=== PATIENT | male | born 1955 | race Caucasian/White ===

== ENCOUNTER → 2016-12-25 | Outpatient (CLI) | payer MEDICARE ==
[~2016-12-25] MED LIST: BUPR-168 PO; CARB200T76 BC; CLOP75TA; CLOP75TA PO; CRB200T; CRB200T PO; DILT120C8; DILT120C8 PO; FISH OIL; GARLIC; LOVA20TA2; LOVA40TA2 PO; LSNP10T; LSNP20T PO; MULT-608; MULT-608 PO
--- NOTE | 2016-12-25 12:18 | Diagnostic Imaging Report ---
PROCEDURE: CT head without contrast. TECHNIQUE: Multiple contiguous axial images were obtained through the brain without the use of intravenous contrast. INDICATION: Seizure disorder. FINDINGS: There is generalized cortical atrophy. There is no intracranial hemorrhage. No mass effect. No extra-axial fluid collections. There is no mass effect. Mild atherosclerotic changes are noted within the carotid siphon. The ventricles are not dilated. There is no shift of midline. There are bilateral periventricular white matter changes probably secondary to old small lacunar infarcts. IMPRESSION: 1. Cortical atrophy. 2. White matter changes along the periventricular region in the centrum semiovale likely representing old lacunar infarct. 3. No acute changes or masses demonstrated. Dictated by: Dictated on workstation # [id number]
== END ==
LOC: RAD 11:27
PROVIDERS: ATTEND Internal Medicine
DX: G31.9 Degenerative disease of nervous system, unspecified (principal); G40.909 Epilepsy, unspecified, not intractable, without status epilepticus
CPT/HCPCS: 70450

== ENCOUNTER → 2017-04-19 | Outpatient (CLI) | payer MEDICARE | LOC: CARD 09:42 | PROVIDERS: ATTEND Internal Medicine Cardiovascular Disease | DX: I77.810 Thoracic aortic ectasia (principal); I10 Essential (primary) hypertension; R07.9 Chest pain, unspecified; R78.5 Finding of other psychotropic drug in blood; M54.5 Low back pain; I47.1 Supraventricular tachycardia | CPT/HCPCS: 93306 ==

== ENCOUNTER → 2017-11-03 | Outpatient (CLI) | payer MEDICARE ==
--- NOTE | 2017-11-03 12:20 | Diagnostic Imaging Report ---
INDICATION: Fever. COMPARISON: 09/26/2011 FINDINGS: 2 views of the chest are obtained. Heart size is normal. The pulmonary vessels appear unremarkable. There is no pneumothorax, mediastinal widening or pleural fluid. There is a pacer device in the left chest. Leads appear intact. The lungs are clear. There are mild degenerative changes in the spine. IMPRESSION: No acute abnormality is demonstrated. Dictated by: Dictated on workstation # [id number]
== END ==
LOC: RAD 10:44
PROVIDERS: ATTEND Internal Medicine
DX: R50.9 Fever, unspecified (principal)
CPT/HCPCS: 71046

== ENCOUNTER → 2017-11-09 | Outpatient (CLI) | payer MEDICARE ==
--- NOTE | 2017-11-09 13:51 | Diagnostic Imaging Report ---
INDICATION: Right upper quadrant pain. TECHNIQUE: Abdominal sonography performed in the routine fashion. FINDINGS: The liver shows normal echogenicity with no focal lesions apparent. Gallbladder is difficult to visualize but shows no definite stones or significant wall thickening. Common duct is not well seen due to overlying gas. Pancreas is obscured by overlying gas. The spleen is unremarkable. The aorta shows mild ectasia distally measuring 3 cm. IVC could not be visualized. The right kidney measures 9.9 cm in length and appears normal. The left kidney measures 10.1 cm in length and appears normal. There is no ascites. IMPRESSION: Limited study as above. No definite gallstones or wall thickening. Common duct could not be visualized nor could the pancreas. Mild ectasia of the abdominal aorta is noted. Consider CT if clinically warranted. Dictated by: Dictated on workstation # [id number]
== END ==
LOC: RAD 11:32
PROVIDERS: ATTEND Internal Medicine
DX: I77.811 Abdominal aortic ectasia (principal); R50.9 Fever, unspecified
CPT/HCPCS: 76700

== ENCOUNTER → 2017-11-10 | Outpatient (CLI) | payer MEDICARE ==
[~2017-11-10] MED LIST changes: +CATHETER FLUSH 10 ML SYR IV PRN
--- NOTE | 2017-11-10 09:58 | Diagnostic Imaging Report ---
Indication: Abdominal pain After intravenous administration of 5.4 mCi technetium 99m Choletec, scintigraphic images of the upper abdomen are obtained. Initial images reveal normal distribution of activity throughout the liver. There is prompt appearance of activity in the biliary tree and gallbladder. Activity passes freely into the small bowel. Oral Ensure was administered with gallbladder ejection fraction calculated to be 96%. Normal values are 50% or greater. Impression: Normal hepatobiliary scan without evidence of cholecystitis or biliary obstruction. Dictated by: Dictated on workstation # [id number]
== END ==
LOC: CARD 07:19
PROVIDERS: ATTEND Internal Medicine
DX: R10.11 Right upper quadrant pain (principal)
CPT/HCPCS: 78227

== ENCOUNTER → 2018-09-08 | Outpatient (CLI) | payer MEDICARE ==
[~2018-09-08] MED LIST changes: -CATHETER FLUSH 10 ML SYR IV PRN
--- NOTE | 2018-09-08 15:05 | Diagnostic Imaging Report ---
PROCEDURE: CT lumbar spine without contrast. TECHNIQUE: Multiple contiguous axial images were obtained through the lumbar spine without the use of intravenous contrast. Sagittal and coronal reformations were then performed. Auto Exposure Controls were utilized during the CT exam to meet ALARA standards for radiation dose reduction. INDICATION: Low back pain increasing in severity. COMPARISON: No prior studies are available for comparison. FINDINGS: Curvature of the lumbar spine is normal. There is minimal retrolisthesis of L5 on S1. Vertebral body heights are maintained. No acute compression fracture is seen. There is multilevel degenerative disc disease with variable disc space narrowing and marginal spurring. There appears to be significant central canal stenosis due to ligamentous thickening, facet changes and broad-based disc/osteophyte complex at the L4-5 level. This is noted to a lesser degree at the L3-4 level. There appears to be bilateral neural foraminal stenosis at L4-5 as well as the L5-S1 levels. The paraspinous tissues demonstrate some mild aneurysmal dilatation of the lower abdominal aorta measuring 3.3 cm in transverse diameter. AP dimension cannot be measured as this was not entirely included on the study. IMPRESSION: 1. Lumbar spondylosis with lower level central canal and neural foraminal stenosis. No acute bony abnormality is detected. 2. Lower abdominal aortic aneurysm. Dictated by: Dictated on workstation # [id number]
== END ==
LOC: RAD 14:15
PROVIDERS: ATTEND Internal Medicine
DX: M47.816 Spondylosis without myelopathy or radiculopathy, lumbar region (principal); M48.061 Spinal stenosis, lumbar region without neurogenic claudication; I71.4 Abdominal aortic aneurysm, without rupture
CPT/HCPCS: 72131

== ENCOUNTER → 2018-09-20 | Outpatient (CLI) | payer MEDICARE ==
--- NOTE | 2018-09-20 12:37 | Diagnostic Imaging Report ---
INDICATION: Abdominal aortic aneurysm screening. TECHNIQUE: Grayscale sonographic images of the abdominal aorta. CORRELATION STUDY: None. FINDINGS: Overall assessment is limited given the overlying bowel gas. There appears to be dilatation throughout the visualized portion of the abdominal aorta. Diffuse atherosclerotic plaque formation. Abdominal Aorta Proximal: Not visualized, obscured by bowel gas. Mid: 3.7 x 3.2 cm Distal: 3.5 x 3.2 cm Common Iliac Arteries Right VENTURA: 2.3 x 1.2 cm Left VENTURA: 2.0 x 1.2 cm IMPRESSION: 1. Limited visualization of abdominal aorta. There appears to be diffuse dilatation of the visualized portion of the abdominal aorta. Maximum measured dimension at 3.7 cm. Dilatation of the bilateral common iliac arteries up to 2.3 cm. Dictated by: Dictated on workstation # [id number]
== END ==
LOC: RAD 07:09
PROVIDERS: ATTEND Internal Medicine
DX: Z13.6 Encounter for screening for cardiovascular disorders (principal); I71.4 Abdominal aortic aneurysm, without rupture; I72.3 Aneurysm of iliac artery
CPT/HCPCS: 76775

== ENCOUNTER → 2020-01-08 | Outpatient (CLI) | payer MEDICARE | LOC: CARD 11:00 | PROVIDERS: ATTEND Internal Medicine Cardiovascular Disease | DX: I08.2 Rheumatic disorders of both aortic and tricuspid valves (principal); I48.91 Unspecified atrial fibrillation; E78.2 Mixed hyperlipidemia; I47.1 Supraventricular tachycardia; G40.909 Epilepsy, unspecified, not intractable, without status epilepticus; I11.9 Hypertensive heart disease without heart failure | CPT/HCPCS: 93306 ==

== ENCOUNTER → 2020-01-10 | Outpatient (CLI) | payer MEDICARE ==
[~2020-01-10] MED LIST changes: +CATHETER FLUSH 10 ML SYR IV PRN; +REGADENOSON 0.4 MG/5 ML SYR (LEXISCAN) IV ONE
[2020-01-10 09:23] VITALS: BP 129/66
--- NOTE | 2020-01-10 13:45 | Cardiology Stress Test Report ---
Stress Test Report Date of Procedure/Referring: Date of Procedure: Jan 10, 2020 PCP Taisha Cheung MD Admitting Physician Rene Fu DO Indications: Atrial fibrillation Baseline Heart Rate: 59 Baseline Blood Pressure: Blood Pressure Systolic: 129 Blood Pressure Diastolic: 66 Baseline Vitals Vital Signs Date Time Temp Pulse Resp B/P (MAP) Pulse Ox O2 Delivery O2 Flow Rate FiO2 01/10/20 09:23 59 129/66 (87) 99 Baseline EKG: Baseline EKG: Normal sinus rhythm with left bundle branch block Summary After explaining the procedure to the patient, he signed a consent and then brought to the stress nuclear laboratory. Patient received 0.4 mg Lexiscan for stress test, ECG, heart rate and blood pressure were monitored continuously. Resting and stress dose of radio tracer were injected, imaging was acquired and reviewed in short axis, horizontal long axis and vertical long axis views. TID: 1.07 SSS: 25 SDS: 5 EF: 45 1. Patient tolerated Lexiscan well 2. Left bundle branch block persisted throughout test 3. Decreased uptake involving the mid to apical inferior wall and inferolateral wall which is fixed with small area of phil-infarct ischemia 4. Prominent left ventricle with diffuse hypokinesia more pronounced at the inferior wall and inferoapex, EF 45 percent TAISHA CHEUNG MD Jan 10, 2020 13:45
== END ==
LOC: CARD 07:14
PROVIDERS: ATTEND Internal Medicine Cardiovascular Disease
DX: I48.91 Unspecified atrial fibrillation (principal); I10 Essential (primary) hypertension; E78.2 Mixed hyperlipidemia; I47.1 Supraventricular tachycardia; G40.909 Epilepsy, unspecified, not intractable, without status epilepticus; I44.7 Left bundle-branch block, unspecified
CPT/HCPCS: 78452; 93017; A9502

== ENCOUNTER 2020-08-21 23:00 | Emergency (ER) | payer MEDICARE ==
[~2020-08-21] VITALS: Ht 185.5 cm; Wt 95.5 kg
[~2020-08-21 23:00] MED LIST changes: -CATHETER FLUSH 10 ML SYR IV PRN; -REGADENOSON 0.4 MG/5 ML SYR (LEXISCAN) IV ONE
[2020-08-21 23:21] LABS: BASOPHILS # (AUTO) 0.1 10^3/uL (0.0-0.1); BASOPHILS % (AUTO) 1 % (0-10); EOSINOPHILS % (AUTO) 0 % (0-10); HEMATOCRIT 35 % (40-54); HEMOGLOBIN 11.3 g/dL (13.3-17.7); LYMPHOCYTES # (AUTO) 1.1 10^3/uL (1.0-4.0); LYMPHOCYTES % (AUTO) 10 % (12-44); MEAN CORPUSCULAR HEMOGLOBIN 31 pg (25-34); MEAN CORPUSCULAR HGB CONC 32 g/dL (32-36); MEAN CORPUSCULAR VOLUME 97 fL (80-99); MONOCYTES # (AUTO) 0.6 10^3/uL (0.0-1.0); MONOCYTES % (AUTO) 6 % (0-12); NEUTROPHILS # (AUTO) 8.5 10^3/uL (1.8-7.8); NEUTROPHILS % (AUTO) 83 % (42-75); PLATELET COUNT 214 10^3/uL (130-400); WHITE BLOOD COUNT 10.3 10^3/uL (4.3-11.0)
[2020-08-21 23:40] LABS: FIBRIN DEGRADATION PRODUCTS 5.48 UG/ML (0.00-0.49); INR 1.3 (0.8-1.4); PROTHROMBIN TIME PATIENT 16.1 SEC (12.2-14.7)
[2020-08-21 23:41] LABS: ALBUMIN 3.6 GM/DL (3.2-4.5); BILIRUBIN,TOTAL 1.1 MG/DL (0.1-1.0); CALCIUM 8.9 MG/DL (8.5-10.1); CREATININE SERUM 1.89 MG/DL (0.60-1.30); POTASSIUM 4.9 MMOL/L (3.6-5.0); TOTAL PROTEIN 7.6 GM/DL (6.4-8.2)
[2020-08-22] MEDS ORDERED: NS IV 1000 ML 1,000 ML IV SCH (00:30)
--- NOTE | 2020-08-22 00:35 | ED Neurological Problem ---
General Chief Complaint: Neuro-Stroke Like Symptoms Stated Complaint: POSSIBLE STROKE Nursing Triage Note: PRESENTS [facility] CART FROM HOME WITH C/O UNWITNESSED FALL ET STROKE LIKE S/S. ARRIVES WITH SL TO L AC. C-COLLAR PLACED PER ER STAFF. EMS [facility] ARRIVED HOME THIS EVENING ET FOUND PT ON THE FLOOR, CONFUSED, FOR UNKNOWN PERIOD OF TIME. REPORTS SHE CONTACTED PT YESTERDAY EVENING ET HE WAS MENTATING AT BASELINE. PT UNABLE TO RECALL WHEN HE FELL. PT NOTED TO BE EXPERIENCING DELAYED SPEECH. WEAKNESS NOTED TO L UPPER EXTREMITY. MULTIPLE AREAS OF BRUISING ET ABRASIONS NOTED. REPORTS PT TESTED + FOR COVID-19 ON 07/13/20 ET HAS BEEN IN CLOSE CONTACT WITH PROVIDERS. AT SIDE. Nursing Sepsis Screen: No Definite Risk Source: patient, family, old records Exam Limitations: no limitations History of Present Illness Date Seen by Provider: Aug 21, 2020 Time Seen by Provider: 23:01 Initial Comments This is a 65-year-old gentleman presents to the emergency room with strokelike symptoms after being found on the floor by his when she came back into town today. She works out of town and had not heard from him since sometime yesterday. Patient does not remember when he fell or what exactly happened. He has obvious left-sided deficits with facial droop, arm weakness, and leg weakn ess. He is otherwise alert and oriented. He has bruising noted to the left face and left lower extremity. He also has some shallow lacerations and scratches on the left leg from his dog. These injuries are already scabbed over. He has a pacemaker/defibrillator and is in paced rhythm at this time. He denies chest pain. He has chronic right shoulder pain which is unchanged today. He denies pain anywhere else. He had a COVID-19 in early July and has had some difficulty with recovering from his acute infection. He is afebrile and does not have any specific Covid symptoms at this time. He had labs performed this week by his outside [employer] sales and they were "okay". He sees Dr. Hernandez. Dr. Fu is his primary care provider. Allergies and Home Medications Allergies Coded Allergies: aspirin (Unverified Allergy, Mild, 01/03/09) morphine (Unverified Allergy, Mild, 01/03/09) Home Medications Bupropion Hcl 75 Mg Tab, 75 MG PO DAILY, (Reported) Carbamazepine 200 Mg Tablet, 1 TAB PO BID, (Reported) Clopidogrel Bisulfate 75 Mg Tablet, 1 EACH PO DAILY, (Reported) Diltiazem Hcl 120 Mg Capsule.cr, 1 EACH PO DAILY, (Reported) Lisinopril 20 Mg Tab, 20 MG PO DAILY, (Reported) Lovastatin 40 Mg Tablet, 1 EACH PO DAILY WITH SUPPER, (Reported) Multivitamins 1 Tab Tablet, 1 TAB PO DAILY, (Reported) Patient Home Medication List Home Medication List Reviewed: Yes Review of Systems Review of Systems Constitutional: no symptoms reported Eyes: No Symptoms Reported Ears, Nose, Mouth, Throat: see HPI Respiratory: no symptoms reported Cardiovascular: see HPI Gastrointestinal: no symptoms reported Genitourinary: no symptoms reported Musculoskeletal: see HPI Skin: see HPI Psychiatric/Neurological: See HPI Endocrine: No Symptoms Reported Hematologic/Lymphatic: No Symptoms Reported Past Wyzkegu-Uueuym-Ikilsh Hx Past Med/Social Hx: Reviewed Nursing Past Med/Soc Hx Patient Social History Alcohol Use: Denies Use Smoking Status: Never a Smoker 2nd Hand Smoke Exposure: No Recent Infectious Disease Expo: No Recent Hopitalizations: Yes Immunizations Up To Date Date of Influenza Vaccine: Sep 27, 2011 Past Medical History Surgeries: Yes (r knee x10, r ankle, l toe amputation, back) Amputation, Appendectomy, Orthopedic, Tonsillectomy Respiratory: No Cardiac: Yes High Cholesterol, Hypertension Neurological: Yes Seizure Disorder Reproductive Disorders: No Gastrointestinal: No Musculoskeletal: Yes (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 0.0oz. [id number]; 27.00 BMI Method:Stated General Appearance: WD/WN, no apparent distress HEENT: PERRL/EOMI, other (Abrasion) Neck: non-tender, normal inspection Respiratory: lungs clear, normal breath sounds, no respiratory distress Cardiovascular: no edema, no murmur, irregularly irregular Gastrointestinal: non tender, soft; No distended Extremities: no pedal edema, other (Bruising and shallow lacerations/abrasions on the left lower extremity. Mild tenderness to palpation of the left hip. No pain with rotation of the hips.) Neurologic/Psychiatric: alert, normal mood/affect, oriented x 3, abnormal business quality assurance analyst II-XII, facial droop Crainal Nerves: PERRL, abnormal speech, facial weakness, other (Left-sided visual field deficit) Coordination/Gait: ABN nose to finger (L) Motor/Sensory: weak motor strength LUE, weak motor strength LLE Skin: warm/dry, ecchymosis Stroke NIH Stroke Scale Assessment Level of Consciousness: 0=Alert (0), Level of Consciousness-Questions: 1=Answers one question (1), LOC Commands: 0=Performs both tasks (0), Gaze: Partial Gaze Palsy (1), Visual Darby: 2=Complete hemianopia (2), Facial Movement (Facial Paresis): 1=Minor paralysis (1), Motor Function-Arms Right: 1=Drift (1), Motor Function-Arms Left: 3=No effort/gravity (3), Motor Function-Legs Right: 0=No drift (0), Motor Function-Legs Left: 3=No effort/gravity (3), Limb Ataxia: 1=Present in one limb (1), Sensory: 0=Normal:no loss (0), Best Language: 0=No aphasia (0), Dysarthria: 1=Mild to moderate loss (1), Extinction & Inattention: 1=Visual,tactile,auditory (1), T otal: 15 Progress/Results/Core Measures Results/Orders Lab Results Laboratory Tests Test 08/21/20 00:35 08/21/20 23:00 08/21/20 23:11 Range/Units Urine Color ZAKIYA H Urine Clarity SL CLOUDY Urine pH 5.5 5-9 Urine Specific [place] >=1.030 1.016-1.022 Urine Protein 2+ H NEGATIVE Urine Glucose (UA) NEGATIVE NEGATIVE Urine Ketones TRACE H NEGATIVE Urine Nitrite NEGATIVE NEGATIVE Urine Bilirubin 1+ H NEGATIVE Urine Urobilinogen 1.0 < = 1.0 MG/DL Urine Leukocyte Esterase NEGATIVE NEGATIVE Urine RBC (Auto) 2+ H NEGATIVE Urine RBC NONE /HPF Urine WBC 0-2 /HPF Urine Crystals NONE /LPF Urine Bacteria TRACE /HPF Urine Casts NONE /LPF Urine Mucus NEGATIVE /LPF Urine Culture Indicated NO White Blood Count 10.3 4.3-11.0 10^3/uL Red Blood Count 3.63 L 4.30-5.52 10^6/uL Hemoglobin 11.3 L 13.3-17.7 g/dL Hematocrit 35 L 40-54 % Mean Corpuscular Volume 97 80-99 fL Mean Corpuscular Hemoglobin 31 25-34 pg Mean Corpuscular Hemoglobin Concent 32 32-36 g/dL Red Cell Distribution Width 13.4 10.0-14.5 % Platelet Count 214 130-400 10^3/uL Mean Platelet Volume 9.0 9.0-12.2 fL Immature Granulocyte % (Auto) 0 % Neutrophils (%) (Auto) 83 H 42-75 % Lymphocytes (%) (Auto) 10 L 12-44 % Monocytes (%) (Auto) 6 0-12 % Eosinophils (%) (Auto) 0 0-10 % Basophils (%) (Auto) 1 0-10 % Neutrophils # (Auto) 8.5 H 1.8-7.8 10^3/uL Lymphocytes # (Auto) 1.1 1.0-4.0 10^3/uL Monocytes # (Auto) 0.6 0.0-1.0 10^3/uL Eosinophils # (Auto) 0.0 0.0-0.3 10^3/uL Basophils # (Auto) 0.1 0.0-0.1 10^3/uL Immature Granulocyte # (Auto) 0.0 0.0-0.1 10^3/uL Prothrombin Time 16.1 H 12.2-14.7 SEC INR Comment 1.3 0.8-1.4 Activated Partial Thromboplast Time 37 H 24-35 SEC D-Dimer 5.48 H 0.00-0.49 UG/ML Sodium Level 136 135-145 MMOL/L Potassium Level 4.9 3.6-5.0 MMOL/L Chloride Level 103 98-107 MMOL/L Carbon Dioxide Level 18 L 21-32 MMOL/L Anion Gap 15 H 5-14 MMOL/L Blood Urea Nitrogen 19 H 7-18 MG/DL Creatinine 1.89 H 0.60-1.30 MG/DL Estimat Glomerular Filtration Rate 36 BUN/Creatinine Ratio 10 Glucose Level 117 H 70-105 MG/DL Calcium Level 8.9 8.5-10.1 MG/DL Corrected Calcium 9.2 8.5-10.1 MG/DL Total Bilirubin 1.1 H 0.1-1.0 MG/DL Aspartate Amino Transf (AST/SGOT) 51 H 5-34 U/L Alanine Aminotransferase (ALT/SGPT) 43 0-55 U/L Alkaline Phosphatase 199 H 40-136 U/L Total Creatine Kinase 742 H 30-200 U/L Troponin I 0.386 *H <0.028 NG/ML Total Protein 7.6 6.4-8.2 GM/DL Albumin 3.6 3.2-4.5 GM/DL Triglycerides Level 181 H <150 MG/DL Cholesterol Level 131 < 200 MG/DL LDL Cholesterol Direct 82 1-129 MG/DL VLDL Cholesterol 36 5-40 MG/DL HDL Cholesterol 17 L 40-60 MG/DL Glucometer 108 70-110 MG/DL My Orders Orders - CHIQUIS HENSON MD Cbc With Automated Diff (08/21/20:) Protime With Inr (08/21/20:) Partial Thromboplastin Time (08/21/20:) Comprehensive Metabolic Panel (08/21/20:) Fibrin Degradation Products (08/21/20:) Troponin I (08/21/20:) Ua Culture If Indicated (08/21/20:) Chest 1 View, Ap/Pa Only (08/21/20:) Catheter(Urinary) Insert & Ass 03,15 (08/21/20:) Ekg Tracing (08/21/20:) Accucheck Stat ONCE (08/21/20:) Ed Iv/Invasive Line Start (08/21/20:) Ed Iv/Invasive Line Start (08/21/20:09) Vital Signs Stroke Patient Q15M (08/21/20:) Ct Head Wo-R/O Stroke (08/21/20:) O2 (08/21/20:) Intake & Output 06,14,22 (08/21/20:) Monitor-Rhythm Ecg Trace Only (08/21/20:) Dysphagia Screening Tool (3/17/21 23:09) Post Thrombolytic Adminstratio (08/21/20 23:09) Lipid Panel (08/22/20 06:00) Ct Cervical Spine Wo (08/21/20 23:09) Pelvis (08/21/20 ) Creatine Kinase (08/21/20 23:43) Ns Iv 1000 Ml (Sodium Chloride 0.9%) (08/22/20 00:30) Dipht,Pertuss(Acell),Tet Adult (Boostrix (08/22/20 00:45) Medications Given in ED Current Medications Medications Dose Ordered Sig/Rachel Route Start Time Stop Time Status Last Admin Dose Admin Diphtheria/ Tetanus/Acell Pertussis 0.5 ml ONCE ONCE IM 08/22/20 00:45 08/22/20 00:46 DC 08/22/20 01:16 0.5 ML Vital Signs/I&O 08/21/20 08/22/20 23:00 02:30 Temp 36.6 36.7 Pulse 114 116 Resp 20 19 B/P (MAP) 138/64 (88) 129/58 (88) Pulse Ox 95 96 O2 Delivery Room Air Room Air Blood Pressure Mean: 88 FSBG Bedside Testing Finger Stick Blood Glucose: 108 Blood Glucose Action Taken: RN NOTIFIED Progress Progress Note : Progress Note Stroke activation was paged upon arrival. He was not a TPA candidate due to length of time from last known well status. Noncontrast CT was reviewed by me and stat rad report reviewed and discussed with the radiologist. There are low- density tissue changes in the right parietal brain consistent with left-sided deficits. CT findings were discussed with Dr. Espitia, stroke neurologist at [facility]. Given patient's renal failure and advanced stroke findings on CT, she advised against CT angiogram as patient does not appear to be an endovascular therapy candidate. There was some subtle midline shift noted on the CT scan. For this reason transfer to a neurosurgical capability was determined to be most appropriate. I discussed the case with Dr. Bennett, Dr. Cope and Dr. Almanza at [facility]. Transfer was accepted. Other abnormalities identified include elevated troponin, although patient denies ever having any chest pain. His creatinine kinase was also moderately elevated. A liter of IV fluid was infused. C-collar had been applied during initial assessment but was removed after cervical spine was cleared by CT scan. Tetanus booster was administered. Initial ECG Impression Date: Aug 21, 2020 Initial ECG Impression Time: 23:06 Initial ECG Rate: 115 Comment Paced rhythm with suspected underlying atrial fibrillation. Diagnostic Imaging Diagonstic Imaging: Xray Plain Films/CT/US/NM/MRI: chest Comments Chest x-ray viewed by me. Report not yet available. No significant acute abn ormalities appreciated. Diagonstic Imaging: CT Plain Films/CT/US/NM/MRI: head Comments CT head viewed by me and stat rad report reviewed. Low-density changes in the right parietal lobe consistent with acute CVA. Subtle 4 mm midline shift. Diagonstic Imaging: Xray Plain Films/CT/US/NM/MRI: pelvis Comments Pelvis x-ray viewed by me. Report not yet available. No acute abnormalities appreciated. Diagonstic Imaging: CT Plain Films/CT/US/NM/MRI: c-spine Comments CT cervical spine viewed by me and stat rad report reviewed. No acute injuries identified. Departure Impression Primary Impression: Acute CVA (cerebrovascular accident) Additional Impressions: Left-sided weakness Elevated troponin Chronic kidney disease Qualified Codes: N18.9 - Chronic kidney disease, unspecified Visual field defect Multiple contusions Disposition: XFER SHT-TRM HOSP Condition: Stable Transfer Transfer Reason: Exceeds level of care Time Spoke to Accepting Phy: 00:35 Transfer Progress Notes Transfer accepted by Dr. Bennett in the ER with consultation from Dr. Cope (neurology) and Dr. Almanza (neurosurgery). Transfer Time: 02:24 Transfer Facility: [place], [place] Departure-Patient Inst. Referrals: MELANIE FU DO (PCP/Family) Primary Care Physician CHIQUIS HENSON MD Aug 22, 2020 00:35
[2020-08-22 00:44] LABS: CLARITY,URINE SL CLOUDY; COLOR,URINE AMBER; GLUCOSE, URINE (UA) NEGATIVE (NEGATIVE); KETONES,URINE TRACE (NEGATIVE); LEUKOCYTE ESTERASE ,URINE NEGATIVE (NEGATIVE); NITRITE,URINE NEGATIVE (NEGATIVE); PH,URINE 5.5 (5-9); PROTEIN,URINE 2+ (NEGATIVE)
[2020-08-22] MEDS ORDERED: TETANUS,DIPTH,PERTUSS P/F (BOOSTRIX) 0.5 ML VIAL IM ONE (00:45)
[2020-08-22 00:55] LABS: CHOLESTEROL 131 MG/DL (< 200); HDL CHOLESTEROL 17 MG/DL (40-60); TRIGLYCERIDES 181 MG/DL (<150); VLDL CHOLESTEROL 36 MG/DL (5-40)
[2020-08-22 00:58] LABS: BACTERIA,URINE TRACE /HPF; BILIRUBIN,URINE 1+ (NEGATIVE); WBC,URINE 0-2 /HPF
[2020-08-22 02:30] VITALS: BP 129/58
--- NOTE | 2020-08-22 06:41 | Diagnostic Imaging Report ---
INDICATION: Trauma, fall. COMPARISON: None available. FINDINGS: Single AP view of the pelvis shows no traumatic diastases in the symphysis pubis or SI joints. No hip dislocation. No acute displaced fractures appreciated. Scattered pelvic phleboliths. IMPRESSION: No features of acute traumatic injury in the pelvis by radiography. Dictated by: Dictated on workstation # [id number]
--- NOTE | 2020-08-22 06:42 | Diagnostic Imaging Report ---
CHEST 1 VIEW, AP/PA ONLY Indication: Trauma, fall. Stroke. Comparison: 11/03/2017 Findings: Stable left pectoral transvenous dual-chamber pacemaker/ICD. Visualized portions of the lungs are clear. Posterior lower lobes are poorly evaluated by portable radiography. No pneumothorax or pleural effusion. Stable borderline cardiomegaly. Impression: 1. No acute cardiopulmonary process by portable radiography. Dictated by: Dictated on workstation # [id number]
--- NOTE | 2020-08-22 06:50 | Diagnostic Imaging Report ---
PROCEDURE: CT cervical spine without contrast. TECHNIQUE: Multiple contiguous axial images were obtained through the cervical spine without the use of intravenous contrast. Sagittal and coronal reformations were then performed. Auto Exposure Controls were utilized during the CT exam to meet ALARA standards for radiation dose reduction. INDICATION: Trauma, fall. COMPARISON: None available. FINDINGS: No acute fracture or traumatic malalignment in the cervical spine. Visualized portions of the upper ribs are intact. Clavicular heads are also intact. Airway is widely patent. No retropharyngeal fluid collection. Lung apices are clear. No cervical lymphadenopathy. IMPRESSION: 1. No acute fracture or malalignment in the cervical spine. 2. Findings are in agreement with the preliminary report. Dictated by: Dictated on workstation # [id number]
--- NOTE | 2020-08-22 06:55 | Diagnostic Imaging Report ---
PROCEDURE: CT head wo r/o stroke. TECHNIQUE: Multiple contiguous axial images were obtained through the brain without the use of intravenous contrast. Auto Exposure Controls were utilized during the CT exam to meet ALARA standards for radiation dose reduction. INDICATION: Trauma, fall. COMPARISON: None available. FINDINGS: There is a large region of rinaldi white loss in the right parietal lobe indicative of acute-subacute infarct. Adjacent to the infarct, there is a hyperdense vessel sign within the posterior aspect of the sylvian fissure, indicative of thrombus. No hemorrhagic conversion is present. No midline shift or hydrocephalus. Chronic infarct in the left occipital lobe and right cerebellar hemisphere. Basilar cisterns remain patent. No skull fracture. Paranasal sinuses and mastoid air cells are clear. IMPRESSION: 1. Acute-subacute infarct in the right parietal lobe with hyperdense thrombus in a branch of the right MCA at the level of posterior sylvian fissure. 2. No hemorrhagic conversion. 3. Old infarcts in the left occipital lobe and right inferior cerebellar hemisphere. 4. Findings are in agreement with the preliminary report. Dictated by: Dictated on workstation # [id number]
== END 2020-08-22 02:30 | disposition short-term general hospital (02) ==
LOC: EDUNIT# 23:00 → ER 23:01
DX: S81.812A Laceration without foreign body, left lower leg, initial encounter (principal); S00.83XA Contusion of other part of head, initial encounter; I63.89 Other cerebral infarction; R47.89 Other speech disturbances; R53.1 Weakness; R29.810 Facial weakness; H53.9 Unspecified visual disturbance; I12.9 Hypertensive chronic kidney disease with stage 1 through stage 4 chronic kidney disease, or unspecified chronic kidney disease; N18.9 Chronic kidney disease, unspecified; R77.8 Other specified abnormalities of plasma proteins; M25.552 Pain in left hip; G89.29 Other chronic pain; M25.511 Pain in right shoulder; R29.715 NIHSS score 15; E78.00 Pure hypercholesterolemia, unspecified; Z23 Encounter for immunization; Z89.422 Acquired absence of other left toe(s); Z79.02 Long term (current) use of antithrombotics/antiplatelets; Z86.16 Personal history of COVID-19; Z95.810 Presence of automatic (implantable) cardiac defibrillator; W19.XXXA Unspecified fall, initial encounter; W54.8XXA Other contact with dog, initial encounter
CPT/HCPCS: 36415; 70450; 71045; 72125; 72170; 80053; 80061; 81000; 82550; 82962; 84484; 85025; 85379; 85610; 85730; 90715; 93005; 93041